=== PATIENT | female | born 1995 | race African-American/Black ===

== ENCOUNTER 2020-09-30 10:23 | Inpatient (IN) ==
[2020-09-30 12:11] LABS: Basophils # 0.1 10*3/uL (0.0-0.2); Basophils % 0.3 % (0.0-0.8); Eosinophils # 0.2 10*3/uL (0.0-0.87); Eosinophils % 1.4 % (0.00-10.9); Hematocrit 34.9 VOL% (35.7-47.0); Hemoglobin 10.5 GM/DL (12.0-16.0); Immature Granulocytes % 0.5 %; Immature Granulocytes Absolute 0.08 #; Lymphocytes # 2.3 10*3/uL (1.4-4.0); Lymphocytes % 14.1 % (21.3-54.2); Mean Corpuscular HGB Conc 30.1 GM/DL (32-36); Mean Corpuscular Volume 67.6 FL (87-102); Mean Platelet Volume 9.5 FL (9.6-12.0); Monocytes % 4.5 % (1.7-12.7); Neutrophils % 79.2 % (38.7-73.9); Platelet Count 343 T/CUMM (130-400); Red Blood Count 5.16 MC/CUMM (3.8-5.5); Red Cell Distribution Width 16.4 % (9.3-17.3); White Blood Count 16.5 T/CUMM (4-12)
[2020-09-30 12:20] LABS: Bacteria,Urine Occasional /HPF (Few); Bilirubin,Urine Negative (Negative); Blood, Urine Negative (Negative); Glucose,Urine (UA) Negative (Negative); Ketones,Urine Negative (Negative); Mucus,Urine Occasional /LPF (Occasional); Nitrite,Urine Negative (Negative); Protein,Urine Negative; RBC,Urine 1 /HPF (0-4); Squamous Epithelial Cell,Urine Occasional /HPF (0-10); Urine Appearance CLEAR (Clear); Urine Color Yellow (Yellow); Urine Specific Gravity 1.021 (1.001-1.035); Urine Urobilinogen < 2.0 EU/DL (0.2-1.0); WBC,Urine 1 /HPF (0-6)
[2020-09-30 12:34] LABS: Alanine Aminotransferase 23 U/L (13-56); Albumin 2.6 G/DL (3.4-5.0); Alkaline Phosphatase 87 U/L (45-117); Aspartate Amino Transferase 13 U/L (0-37); Bilirubin,Total < 0.39 MG/DL (0.2-1.0); Blood Urea Nitrogen 13 MG/DL (7-18); Calcium 8.5 MG/DL (8.5-10.1); Estimated Glom Filtration Rate 156 ML/MIN; Glucose 113 MG/DL (74-106); Osmolality,Calculated 277.5 MOS/KG (273-304); Total Protein 7.3 G/DL (6.4-8.3)
[2020-09-30] MEDS ORDERED: ASPIRIN 325 MG TABLET PO STA (12:37)
[2020-09-30] MEDS ORDERED: ENOXAPARIN 100 MG/ML SYRINGE SUBCUT STA (14:42)
[2020-09-30 15:18] LABS: Risk Ratio 2.75; VLDL CHOLESTEROL 15.4 MG/DL
[2020-09-30] MEDS ORDERED: DEXTROSE 50% 25 GM/50 ML VIAL IV PRN (15:32)
[2020-09-30] MEDS ORDERED: AZITHROMYCIN INJ 500 MG in SODIUM CHLORIDE 0.9% 250 ML IV ONE (15:32)
[2020-09-30] MEDS ORDERED: ONDANSETRON 4 MG/2 ML VIAL IV PRN (15:32)
[2020-09-30] MEDS ORDERED: GLUCAGON 1 MG VIAL IM PRN (15:32)
[2020-09-30] MEDS: DEXAMETHASONE 4 MG/1 ML VIAL IV SCH (16:15)
[2020-09-30 17:07] LABS: Ferritin 38.3 ng/ml (8-252)
[2020-09-30] MEDS: cefTRIAXone 1,000 MG in SYRINGE 1 EACH IV SCH (19:03)
[2020-09-30 19:37] LABS: Partial Thromboplastin Time 31.9 SECS (23.9-33.8); Troponin I 0.145 NG/ML (0.00-0.045)
[2020-09-30 19:48] LABS: INR 1.2; PT Patient Result 12.9 SECS (9.8-11.9)
[2020-09-30] MEDS: MELATONIN 3 MG TABLET PO PRN (20:55)
[2020-09-30] MEDS: CLORAZEPATE 3.75 MG TABLET PO PRN (20:55)
[2020-09-30] MEDS: ASCORBIC ACID 500 MG TABLET PO SCH (20:55)
[2020-09-30] MEDS: FAMOTIDINE 20 MG TABLET PO SCH (20:55)
[2020-10-01 04:42] LABS: Basophils % 0.2 % (0.0-0.8); Hematocrit 33.4 VOL% (35.7-47.0); Hemoglobin 10.1 GM/DL (12.0-16.0); Immature Granulocytes % 0.4 %; Immature Granulocytes Absolute 0.07 #; Lymphocytes # 1.6 10*3/uL (1.4-4.0); Lymphocytes % 9.8 % (21.3-54.2); Mean Corpuscular HGB Conc 30.2 GM/DL (32-36); Mean Corpuscular Volume 66.8 FL (87-102); Mean Platelet Volume 10.2 FL (9.6-12.0); Monocytes % 3.6 % (1.7-12.7); Platelet Count 350 T/CUMM (130-400); Red Cell Distribution Width 16.4 % (9.3-17.3); White Blood Count 16.1 T/CUMM (4-12)
[2020-10-01 05:13] LABS: Calcium 8.7 MG/DL (8.5-10.1)
[2020-10-01 05:21] LABS: Alanine Aminotransferase 19 U/L (13-56); Albumin 2.4 G/DL (3.4-5.0); Alkaline Phosphatase 89 U/L (45-117); Aspartate Amino Transferase 12 U/L (0-37); Bilirubin,Total < 0.39 MG/DL (0.2-1.0); Blood Urea Nitrogen 13 MG/DL (7-18); Calcium 8.6 MG/DL (8.5-10.1); Estimated Glom Filtration Rate 180 ML/MIN; Ferritin 41.1 ng/ml (8-252); Glucose 103 MG/DL (74-106); Osmolality,Calculated 272.8 MOS/KG (273-304); Total Protein 6.7 G/DL (6.4-8.3)
[2020-10-01 06:05] LABS: Sedimentation Rate-Westergren 33 MM/HR (0-20)
[2020-10-01] MEDS: ZINC GLUCONATE 50 MG TABLET PO SCH (09:22)
[2020-10-01] MEDS: APIXABAN 5 MG TABLET PO SCH ×2 (09:22→20:35)
[2020-10-01] MEDS: CHOLECALCIFEROL 1,000 UNIT TABLET PO SCH (09:22)
[2020-10-01] MEDS: FAMOTIDINE 20 MG TABLET PO SCH ×2 (09:22→20:35)
[2020-10-01] MEDS: DEXAMETHASONE 4 MG/1 ML VIAL IV SCH (09:22)
[2020-10-01] MEDS: CETIRIZINE 10 MG TABLET PO SCH (09:22)
[2020-10-01] MEDS: ASCORBIC ACID 500 MG TABLET PO SCH ×2 (09:22→20:35)
[2020-10-01] MEDS: AZITHROMYCIN 250 MG TABLET PO SCH (09:22)
[2020-10-01] MEDS: cefTRIAXone 1,000 MG in SYRINGE 1 EACH IV SCH (17:24)
[2020-10-01] MEDS: CLORAZEPATE 3.75 MG TABLET PO PRN (20:35)
[2020-10-01] MEDS: MELATONIN 3 MG TABLET PO PRN (20:35)
[2020-10-02 06:14] LABS: Basophils % 0.2 % (0.0-0.8); Eosinophils # 0.1 10*3/uL (0.0-0.87); Eosinophils % 0.3 % (0.00-10.9); Hematocrit 31.8 VOL% (35.7-47.0); Hemoglobin 9.6 GM/DL (12.0-16.0); Immature Granulocytes % 0.7 %; Immature Granulocytes Absolute 0.12 #; Mean Corpuscular HGB Conc 30.2 GM/DL (32-36); Mean Corpuscular Volume 66.8 FL (87-102); Mean Platelet Volume 9.9 FL (9.6-12.0); Monocytes % 5.7 % (1.7-12.7); Neutrophils % 70.1 % (38.7-73.9); Platelet Count 364 T/CUMM (130-400); Red Blood Count 4.76 MC/CUMM (3.8-5.5); Red Cell Distribution Width 16.4 % (9.3-17.3); White Blood Count 17.3 T/CUMM (4-12)
[2020-10-02 06:38] LABS: Albumin 2.5 G/DL (3.4-5.0); Bilirubin,Total 0.5 MG/DL (0.2-1.0); Calcium 8.8 MG/DL (8.5-10.1); Osmolality,Calculated 279.4 MOS/KG (273-304); Total Protein 6.7 G/DL (6.4-8.3)
[2020-10-02] MEDS: APIXABAN 5 MG TABLET PO SCH (08:18)
[2020-10-02] MEDS: DEXAMETHASONE 4 MG/1 ML VIAL IV SCH (08:18)
[2020-10-02] MEDS: AZITHROMYCIN 250 MG TABLET PO SCH (08:19)
[2020-10-02] MEDS: CHOLECALCIFEROL 1,000 UNIT TABLET PO SCH (08:19)
[2020-10-02] MEDS: CETIRIZINE 10 MG TABLET PO SCH (08:19)
[2020-10-02] MEDS: FAMOTIDINE 20 MG TABLET PO SCH (08:19)
[2020-10-02] MEDS: ZINC GLUCONATE 50 MG TABLET PO SCH (08:19)
[2020-10-02] MEDS: ASCORBIC ACID 500 MG TABLET PO SCH (08:19)
[2020-10-02 11:37] VITALS: BP 136/85
== END 2020-10-02 15:42 | disposition home or self-care (01) | DRG 175 ==
LOC: N.ED 10:23 → N.EDINP 15:08 → N.2E 16:37
PROVIDERS: ADMIT Internal Medicine; ATTEND Internal Medicine